=== PATIENT | male | born 1980 | race Caucasian/White ===

== ENCOUNTER 2017-02-08 15:38 | Emergency (ER) | payer OTHER ==
[~2017-02-08] VITALS: Ht 180.3 cm; Wt 114.5 kg
[2017-02-08 17:10] LABS: HEMATOCRIT 41.7 % (38.0-50.0); MCH 29.5 PG (29.0-34.0); MCHC 34.3 G/DL (30.0-36.0); MEAN PLAT.VOLUME 9.7 uM^3 (9.0-12.4); PLATELET COUNT 274 K/uL (156-360); RBC DIS.WIDTH-CV 12.4 % (11.8-14.6); RBC DIS.WIDTH-SD 38.6 % (39-53); RED BLOOD COUNT 4.85 M/uL (4.00-5.50); WHITE BLOOD COUNT 5.5 K/uL (4.1-10.2)
[2017-02-08 17:20] LABS: CHLORIDE 107 mEq/L (99-109); SODIUM 138 mEq/L (136-147)
[2017-02-08 17:22] LABS: GLUCOSE 92 mg/dL (70-99)
[2017-02-08 17:23] LABS: ANION GAP 10 MEQ/L (2-14)
[2017-02-08 17:25] LABS: GFR ESTIMATE (CALCULATED) > 59 mL/min/
[2017-02-08 17:26] LABS: UREA NITROGEN (BUN) 18 mg/dL (9-23)
[2017-02-08 17:32] LABS: TROP-I INTERPRETATION NEGATIVE; TROPONIN-I < 0.01 ng/mL (0.0-0.30)
[2017-02-08 19:48] LABS: TROP-I INTERPRETATION NEGATIVE; TROPONIN-I < 0.01 ng/mL (0.0-0.30)
[2017-02-08] MEDS ORDERED: MOBIC15 MG PO (20:08)
[2017-02-08 20:23] VITALS: BP 108/72
== END 2017-02-08 20:24 | disposition home or self-care (01) ==
LOC: EME 15:38 → EDBD 15:38 → EME 20:24
PROVIDERS: Emergency Medicine
DX: R07.9 Chest pain, unspecified (principal); M79.601 Pain in right arm; R05 Cough
CPT/HCPCS: 71020; 80048; 84484; 85027; 93005; 99281; 99284